=== PATIENT | female | born 1950 | race Caucasian/White ===

== ENCOUNTER → 2024-04-16 | Outpatient (CLI) | payer MEDICARE ==
[2024-04-16 15:50] LABS: Basophils # (A) 0.06 X 10*3/uL (0.00-0.10); Basophils % (A) 1.3 %; Eosinophils # (A) 0.26 X 10*3/uL (0.04-0.35); Eosinophils % (A) 5.6 %; HCT 40.6 % (37.2-46.3); HGB 12.5 g/dL (12.0-15.0); Lymphocytes # (A) 1.26 X 10*3/uL (0.90-5.00); MCH 28.9 pg (27.0-32.0); MCHC 30.8 g/dL (32.0-37.0); MCV 93.8 FL (80.0-97.0); Mean Platelet Volume 10.9 FL (9.5-12.2); Monocytes # (A) 0.54 X 10*3/uL (0.20-1.00); Monocytes % (A) 11.6 %; NRBC Per 100 WBC 0 X 10*3/uL (0.00-0.01); Neutrophils # (A) 2.53 X 10*3/uL (1.80-7.70); Neutrophils % (A) 54.1 %; Platelet Count 288 X 10*3/uL (140-440); RBC 4.33 X 10*6/uL (4.10-5.20); RDW 15.2 % (11.5-14.5); WBC 4.67 X 10*3/uL (4.50-10.00)
[2024-04-16 20:57] LABS: % Iron Saturation 19.61 (12.00-45.00); ALT 9 U/L (8-44); AST 26 U/L (13-35); Chol/HDL Ratio 2.83 Ratio; Ferritin 22.2 ng/mL (10.0-291.0); Iron 90 UG/DL (50-170); LDL Cholesterol,Calculated 112.1 mg/dL (0.0-131.0); Total Iron Binding Capacity 459 UG/DL (228-460); VLDL Calculation 15.96 mg/dL (5.00-40.00)
== END | disposition home or self-care (01) ==
LOC: LABWHC1 13:06
PROVIDERS: ATTEND Internal Medicine
DX: E78.5 Hyperlipidemia, unspecified (principal); D50.9 Iron deficiency anemia, unspecified
CPT/HCPCS: 36415; 80061; 82728; 83540; 83550; 84450; 84460; 85025